=== PATIENT | male | born 1995 | race Hispanic/Latino ===

== ENCOUNTER 2017-03-14 19:26 | Emergency (ER) | payer OTHER ==
[2017-03-14 19:54] VITALS: BP 134/88; PULSE 88; RESP 16; TEMP 99.6; O2SAT 100
--- NOTE | 2017-03-14 21:21 | ED PDOC ---
Lower Extremity Pain/Injury Time Seen by Provider: 03/14/17 20:22 Chief Complaint (Nursing): Lower Extremity Problem/Injury History Per: Patient Additional Complaint(s): 21 yo M reports twisting injury of the R ankle, when he fell down the stairs [employer]. Patient now complains of pain; can not bear weight on ankle. Otherwise: ( -) knee pain, (-) foot pain, (-) numbness, (-) other injury. PMD not on staff Past Medical History Vital Signs: Last Vital Signs Temp 99.6 F 03/14/17 19:52 Pulse 88 03/14/17 19:52 Resp 16 03/14/17 19:52 BP 134/88 03/14/17 19:52 Pulse Ox 100 03/14/17 19:52 - Medical History PMH: No Chronic Diseases - Family History Family History: States: No Known Family Hx - Allergies Allergies/Adverse Reactions: Allergies Allergy/AdvReac Type Severity Reaction Status Date / Time No Known Allergies Allergy Verified 03/14/17 19:52 Review of Systems Constitutional: Negative for: Fever, Chills, Weakness Musculoskeletal: Positive for: Other (R ankle pain). Negative for: Neck Pain, Shoulder Pain, Back Pain, Hand Pain Skin: Negative for: Rash, Lesions Physical Exam - Physical Exam Comments: GENERAL APPEARANCE: Patient is awake, alert, oriented x 3, in no acute distress. SKIN: Warm, dry; (-) cyanosis. LOWER EXTREMITY: Ankle: (-) swelling, tenderness of the medial aspect of the ankle; (+) swelling and tenderness of the lateral ankle; (+) limited range of motion secondary to pain. Achilles tendon intact and nontender. Knee and foot : (-) injury. CARDIOVASCULAR: (+) distal pulse. NEUROLOGIC: (+) distal sensation. - ECG O2 Sat by Pulse Oximetry: 100 Medical Decision Making Medical Decision Making: XR R ankle: no fracture, no dislocation, as read by PA Patient advised that official radiology read of XR is still pending and will call the patient if there is any discrepancy within 24 hours. X-ray results discussed with the patient. Diagnosis of ankle sprain discussed with patient. Aircast and cookie wrapt applied by. Neurovascular intact post splint application. Patient instructed on crutch walking. Based on history, exam and diagnostic results plan will be for outpatient follow -up. Advised rest, ice and elevate the joint. Advised to follow up with ortho referral provided in 1-2 days without fail. Advised to take otc motrin prn for pain. Return to the emergency room at any time for any new or worsening symptoms. Patient states he fully agrees with and understands discharge instructions. States that he agrees with the plan and disposition. Verbalized and repeated discharge instructions and plan. I have given the patient opportunity to ask any additional questions. Disposition - Clinical Impression Clinical Impression: Ankle sprain and strain - Patient ED Disposition Is Patient to be Admitted: No Counseled Patient/Family Regarding: Studies Performed, Diagnosis, Need For Followup, Rx Given - Disposition Referrals: Montez Soto III, MD [Staff Provider] - Disposition Time: 21:00 Condition: STABLE Additional Instructions: Thank you for letting us take care of you today. You were treated for ankle sprain. The emergency medical care you received today was directed at your acute symptoms. Rest, ice and elevate, take OTC motrin for pain. It may take several days for your symptoms to resolve. Return to the Emergency Department if your symptoms worsen, do not improve, or if you have any other problems. Please contact your doctor in 2 days for re-evaluation and follow up / or call one of the physicians/clinics you have been referred to that are listed on the Patient Visit Information form that is included in your discharge packet. Bring any paperwork you were given at discharge with you along with any medications you are taking to your follow up visit. Our treatment cannot replace ongoing medical care by a primary care provider (PCP) outside of the emergency department. Thank you for allowing the [facility] team to be part of your care today. If you had an X-Ray: A Radiologist will review the ED reading if any change in treatment is needed we will contact you. 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
--- NOTE | 2017-03-15 08:52 | RAD ---
PROCEDURE: Right Ankle Radiographs. HISTORY: pain COMPARISON: None FINDINGS: BONES: Focal lucency in the talar dome. JOINTS: Ankle mortise maintained. SOFT TISSUES: Lateral malleolar soft tissue swelling. OTHER FINDINGS: Small ankle joint effusion. IMPRESSION: Lateral malleolar soft tissue swelling and ankle joint effusion. Focal lucency in the talar dome for which an osteochondral defect cannot be excluded. MRI can be obtained for further evaluation as clinically warranted. ER notification submitted electronically.
== END 2017-03-14 21:37 | disposition home or self-care (01) ==
LOC: H.ER 19:26
DX: S99.911A Unspecified injury of right ankle, initial encounter (principal); W10.9XXA Fall (on) (from) unspecified stairs and steps, initial encounter; Y92.89 Other specified places as the place of occurrence of the external cause

== ENCOUNTER 2017-12-08 19:03 | Emergency (ER) | payer OTHER ==
[2017-12-08 19:08] VITALS: BP 120/76; TEMP 98.5; O2SAT 96
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
[2017-12-08 21:33] VITALS: PULSE 99; RESP 18
== END 2017-12-08 21:20 | disposition home or self-care (01) ==
LOC: H.ER 19:03
DX: S60.511A Abrasion of right hand, initial encounter (principal); W45.8XXA Other foreign body or object entering through skin, initial encounter